=== PATIENT | male | born 1975 | race Caucasian/White ===

== ENCOUNTER 2021-12-09 12:56 | Emergency (ER) | payer OTHER, SELFPAY ==
--- NOTE | 2021-12-09 13:00 | ED.URI ---
HPI - URI/Sore Throat General Chief Complaint: Upper Respiratory Infection Stated Complaint: cough tight chest Time Seen by Provider: 12/09/21 13:00 Source: patient and RN notes reviewed History of Present Illness HPI Narrative: Patient is a 46-year-old male who presents the urgent care with complaints of cough, intermittent shortness of breath and chest tightness. Patient states is been occurring for approximately 1 week and he has been using Mucinex and DayQuil. Denies of any fevers, nausea, vomiting or chest pain. Patient states he does have a history of bronchitis. Denies any wheezing. No other acute complaints. No acute distress noted. Patient aware of the plan of care. Some parts of this dictation were generated by voice recognition software and may contain typographical and/or grammatical inaccuracies. Related Data Home Medications Medication Instructions Recorded Confirmed gjwjydkytb-drpmsunsegclg-twxt 50 tablet PO Q4-6H PRN 12/09/21 12/09/21 trazodone 50 mg PO HS 12/09/21 12/09/21 Allergies Allergy/AdvReac Type Severity Reaction Status Date / Time No Known Allergies Allergy Verified 12/09/21 13:06 Review of Systems Review of Systems: CONSTITUTIONAL: Denies fever, chills, or sweats. EYES: Denies visual changes, redness, or discharge. ENT: Denies rhinorrhea, congestion, sore throat, or otalgia. CARDIOVASCULAR: Denies chest pain, palpitations, or edema. RESPIRATORY: Reports of cough, chest congestion and intermittent dyspnea GASTROINTESTINAL: Denies abdominal pain, nausea, vomiting, or diarrhea. GENITOURINARY: Denies dysuria or hematuria. SKIN: Denies rash or itching. MUSCULOSKELETAL: Denies back pain, joint pain, or myalgia. NEUROLOGIC: Denies headache, numbness, or weakness. All other systems reviewed are negative, except as documented in HPI. PMFSH Comments At the time of my signature, I reviewed and agree with the nursing past medical, surgical, social, and family history. There is no relevant family history pertinent to the patient complaint. Exam Narrative: GENERAL: This is a well-nourished, well-developed patient, in no apparent distress. HEAD: normocephalic, atraumatic. EYES: PERRL. Sclera clear/white. Vision is grossly intact. EARS: External ears normal, auditory canals clear and without drainage, TMs normal without perforation. Hearing grossly intact. NOSE: External nose normal with no obvious nasal discharge, nares without redness, no rhinorrhea. THROAT: Mucous membranes moist, posterior pharynx clear. Mild postnasal drainage NECK: Neck supple CARDIOVASCULAR: Regular rate and rhythm without murmurs, gallops, or rubs. RESPIRATORY: Dry cough noted on exam. Clear to auscultation. Breath sounds equal bilaterally. No wheezes, rales, or rhonchi. SKIN: warm, intact with no suspicious lesions or rash, good texture and turgor. NEURO: awake, alert, and oriented to person, place and time. There were no obvious focal neurologic abnormalities. EXTREMITIES: No clubbing, cyanosis, or edema. Course Course Level of Care: Express Care Visit Vital Signs Vital signs: Vital Signs Temperature 98.0 F 12/09/21 13:03 Pulse Rate 98 12/09/21 13:03 Respiratory Rate 20 12/09/21 13:03 Blood Pressure 114/79 12/09/21 13:03 Pulse Oximetry 98 12/09/21 13:03 Temperature 98.0 F 12/09/21 13:03 Pulse Rate 98 12/09/21 13:03 Respiratory Rate 20 12/09/21 13:03 Blood Pressure 114/79 12/09/21 13:03 Pulse Oximetry 98 12/09/21 13:03 Reviewed MDM - URI/Sore Throat MDM Narrative Medical decision making narrative: Advised the patient continue Mucinex and take a daily antihistamine such as Zyrtec or Claritin. Use a humidifier at night and do not sleep with the windows open or a fan on. Complete the steroid regimen as prescribed and use the inhaler as directed for wheezing or difficulty breathing. If you develop any increase in symptoms associated with high fevers or chest pain?go to the emergenc
[2021-12-09 13:03] VITALS: BP 114/79; PULSE 98; RESP 20; TEMP 36.7; O2SAT 98
[2021-12-09 13:14] VITALS: BP 114/79; PULSE 98; RESP 20; TEMP 36.7; O2SAT 98
== END 2021-12-09 13:21 | disposition home or self-care (01) ==
PROVIDERS: Emergency Provider Nurse Practitioner Family
DX: J98.01 Acute bronchospasm (principal)
CPT/HCPCS: 99213; G0463

== ENCOUNTER 2022-07-03 08:31 | Emergency (ER) | payer OTHER, SELFPAY ==
--- NOTE | ~2022-07-03 | XR_ITS ---
EXAMINATION: XR shoulder RT min 2V DATE: 07/03/2022 08:57 INDICATION: Lateral right shoulder pain and weakness after moving a dresser. TECHNIQUE: AP internally and externally rotated, AP oblique externally rotated and axillary views of the right shoulder were obtained. COMPARISON: None FINDINGS: Normal alignment. No fracture. Glenohumeral joint is normal. Acromioclavicular joint is normal. Soft tissues are unremarkable. Right lung is clear. No pleural effusion or pneumothorax. IMPRESSION: Negative right shoulder radiographs. Reviewed, dictated and finalized at location B.
[2022-07-03 08:38] VITALS: BP 121/77; PULSE 72; RESP 16; TEMP 36.6; O2SAT 99
--- NOTE | 2022-07-03 08:44 | ED.UPPEXIN ---
HPI - Extremity Injury (Upper) General Chief Complaint: Extremity Injury, Upper Stated Complaint: right shoulder injury Time Seen by Provider: 07/03/22 08:45 Source: patient and RN notes reviewed Mode of arrival: ambulatory Limitations: no limitations History of Present Illness HPI narrative: 47-year-old male presents to the [facility] with right lateral shoulder pain. States on May 27, 5 weeks ago Him and his son were moving a dresser when he felt a pop in the right shoulder. No bruising or swelling noted. Has decreased range of motion. Full range of motion of the elbow, wrists, strong vegetable grower, positive radial pulse. Sensation intact in all 5 fingers capillary refill under 2 seconds complaint: injury to: right and shoulder Related Data Home Medications Medication Instructions Recorded Confirmed trazodone 50 mg tablet 100 mg PO HS 12/09/21 07/03/22 Allergies Allergy/AdvReac Type Severity Reaction Status Date / Time No Known Allergies Allergy Verified 07/03/22 08:52 Review of Systems Review of Systems: All systems reviewed & are unremarkable except as noted in HPI and below Constitutional: Constitutional: Reports no additional constitutional complaints, Denies chills and Denies fever(s) Eyes: Eyes: Reports no additional eye complaints ENT: Reports system reviewed and no additional complaints, except as documented Cardiovascular: Cardiovascular: Reports no additional cardiovascular complaints Respiratory: Respiratory: Reports no additional respiratory complaints Gastrointestinal: Gastrointestinal: Reports no additional gastrointestinal complaints Musculoskeletal: Musculoskeletal: Reports as per HPI, Reports arthralgias ( right shoulder) and Denies joint swelling Integumentary/Breasts: Skin/Breast: Reports system reviewed and no additional complaints, except as docu Neurologic: Reports system reviewed and no additional complaints, except as documented Psychiatric: Psychiatric: Reports no additional psychiatric complaints Allergic/Immunologic: Allergic/Immunologic: Reports no additional allergic/immunologic complaints [facility] Past Medical History Medical History (Updated 07/03/22 @ 11:40 by Reyna Waller APRN) Patient denies medical problems Surgical History Surgical History (Updated 07/03/22 @ 11:40 by Reyna Waller APRN) No pertinent past surgical history Social History Social History (Updated 07/03/22 @ 11:40 by Reyna Waller APRN) Gender identity (if verbalized by the patient): Male Comments At the time of my signature, I reviewed and agree with the nursing past medical, surgical, social, and family history. There is no relevant family history pertinent to the patient complaint. Exam Const: General: healthy appearing, no acute distress, alert and well nourished Nutritional Appearance: well nourished Orientation/consciousness: patient oriented x3 Limitations: no limitations HENMT: Head: normal to inspection Ears: external ears normal Face and sinus: normal facial exam Eyes: General: appearance normal, both eyes and all related structures Pupils: Equal, round and reactive pupils present Neck: Neck: normal visual inspection, no lymphadenopathy and no meningeal signs Chest: Chest palpation & inspection: normal inspection of the chest Resp: Effort & Inspection: normal respiratory effort and no use of accessory muscles Auscultation: clear to auscultation bilaterally, no crackles, no rales, no rhonchi and no wheezes Cardio: Rate: regular rate Rhythm: regular rhythm Back/Spine/Pelvis: Cervical Spine: normal cervical lordosis Thoracic/Lumbar Spine: thoracic and lumbar spine normal to inspection Skin: General skin exam: normal color Rashes: no rashes Wounds: no wounds Neuro: General: patient oriented x3, moves all extremities, no meningeal signs and no focal motor deficits Cranial nerves: Yes Equal, round and reactive pupils present Speech: normal speech Gai
--- NOTE | 2022-07-03 08:58 | PC.NURSE ---
PT DECLINED ICE FOR COMFORT
== END 2022-07-03 09:11 | disposition home or self-care (01) ==
PROVIDERS: Emergency Provider Nurse Practitioner; PCP Internal Medicine
DX: S46.911A Strain of unspecified muscle, fascia and tendon at shoulder and upper arm level, right arm, initial encounter (principal); X50.0XXA Overexertion from strenuous movement or load, initial encounter
CPT/HCPCS: 73030; 99213; G0463

== ENCOUNTER 2022-08-14 15:29 | Emergency (ER) | payer OTHER, SELFPAY ==
[2022-08-14 15:33] VITALS: BP 107/78; PULSE 89; RESP 16; TEMP 36.2; O2SAT 100
--- NOTE | 2022-08-14 15:35 | ED.UPPEXIN ---
HPI - Extremity Injury (Upper) General Chief Complaint: Extremity Injury, Upper Stated Complaint: Right hand finger Time Seen by Provider: 08/14/22 15:35 Source: patient and RN notes reviewed History of Present Illness HPI narrative: patient is a 47-year-old male who presents to urgent care with complaints of swelling, pain to the right middle digit. Patient states that he bites his cuticles. Patient states this is day 4. No other acute complaints. No acute distress noted. Patient aware of the plan of care. Some parts of this dictation were generated by voice recognition software and may contain typographical and/or grammatical inaccuracies. Related Data Home Medications Medication Instructions Recorded Confirmed trazodone 50 mg tablet 100 mg PO HS 12/09/21 08/14/22 methocarbamol 750 mg tablet 750 mg PO TID PRN Muscle Spasm 08/14/22 08/14/22 Allergies Allergy/AdvReac Type Severity Reaction Status Date / Time No Known Allergies Allergy Verified 08/14/22 15:42 Review of Systems Review of Systems: CONSTITUTIONAL: Denies fever, chills, or sweats. EYES: Denies visual changes, redness, or discharge. ENT: Denies rhinorrhea, congestion, sore throat, or otalgia. CARDIOVASCULAR: Denies chest pain, palpitations, or edema. RESPIRATORY: Denies cough or dyspnea. GASTROINTESTINAL: Denies abdominal pain, nausea, vomiting, or diarrhea. GENITOURINARY: Denies dysuria or hematuria. SKIN: Represents redness, swelling, pain to the cuticle of the right middle digit MUSCULOSKELETAL: Denies back pain, joint pain, or myalgia. NEUROLOGIC: Denies headache, numbness, or weakness. All other systems reviewed are negative, except as documented in HPI. [facility] Past Medical History Medical History (Updated 08/14/22 @ 15:49 by NAVEED Butler) Patient denies medical problems Surgical History Surgical History (Updated 07/03/22 @ 11:40 by Reyna Waller APRN) No pertinent past surgical history Social History Social History (Updated 07/03/22 @ 11:40 by Reyna Waller APRN) Gender identity (if verbalized by the patient): Male Comments At the time of my signature, I reviewed and agree with the nursing past medical, surgical, social, and family history. There is no relevant family history pertinent to the patient complaint. Exam Narrative: GENERAL: This is a well-nourished, well-developed patient, in no apparent distress. HEAD: normocephalic, atraumatic. EYES: PERRL. Sclera clear/white. Vision is grossly intact. EARS: External ears normal NOSE: External nose normal with no obvious nasal discharge, nares without redness, no rhinorrhea. THROAT: Mucous membranes moist NECK: Neck supple SKIN: Moderate erythema and edema surrounding the cuticle, mostly to the radial aspect of the right middle finger.warm, intact with no suspicious lesions or rash, good texture and turgor. NEURO: awake, alert, and oriented to person, place and time. There were no obvious focal neurologic abnormalities. EXTREMITIES: range of motion right upper extremity within normal limits. Positive strong right radial pulse with capillary refill less than 2 seconds. Course Course Level of Care: Express Care Visit Vital Signs Vital signs: Vital Signs Temperature 97.2 F L 08/14/22 15:33 Pulse Rate 89 08/14/22 15:33 Respiratory Rate 16 08/14/22 15:33 Blood Pressure 107/78 08/14/22 15:33 Pulse Oximetry 100 08/14/22 15:33 Oxygen Delivery Room Air 08/14/22 15:33 Temperature 97.2 F L 08/14/22 15:33 Pulse Rate 89 08/14/22 15:33 Respiratory Rate 16 08/14/22 15:33 Blood Pressure 107/78 08/14/22 15:33 Pulse Oximetry 100 08/14/22 15:33 Oxygen Delivery Room Air 08/14/22 15:33 reviewed Procedures Other Procedure Procedure 1: Other Procedure: paronychia noted to the cuticle aspect of the right middle digit, more so on the radial aspect. Cleansed with Betadine. Incised with 18 gauge needle. Thick y
== END 2022-08-14 15:50 | disposition home or self-care (01) ==
PROVIDERS: Emergency Provider Nurse Practitioner Family; PCP Internal Medicine
DX: L03.011 Cellulitis of right finger (principal)
CPT/HCPCS: 10060; 99213; G0463

== ENCOUNTER 2024-10-14 15:24 | Emergency (ER) | payer BC, SELFPAY ==
--- OUTSIDE RECORDS SUMMARY | 2024-10-14 15:25 | XMS_ITS | Encounter Summary ---
Author Organization [facility] Address [address] [place] [address] Phone Care Team Providers Care Appointment Scheduler Name Role Phone Rich Villatoro MD Primary Care Provider [phone] Reason for Visit * Reason Comments Medication Refill Encounter Details Date Type Department Care Team (Late st Contact Info) Description 09/17/2021 Refill [facility] - Family Medicine [facility] [address] [place] [id number] Rich Villatoro MD [address] [address] Medication Refill Social History Tobacco Use Types Packs/Day Years Used Date Smoking Tobacco: Never Smokeless Tobacco: Current Alcohol Use Standard Drinks/Week Comments No 0 (1 standard drink = 0.6 oz pur e alcohol) PHQ-2 Answer Date Recorded Total Score - Questions 1-9 0 12/29 Education Answer Date Recorded What is the highest level of school you have completed or the highest degree you have received? GED or equivalent Sex and Gender Information Value Date Recorded Sex Assigned at Not on file Legal Sex Male 12:40 AM CDT Gender Identity Not on file Sexual Orientation Not on file documented as of this encounter Miscellaneous Notes * Telephone Encounter - Cass Andrade RMA - 09/18/2021 9:58 AM PRODUCTION GEAR CUTTER Left voicemail UCTION GEAR CUTTER * Telephone Encounter - Karli Cedillo RN - 09/17/2021 1:50 PM CST Patient needs an appointment with PCP UCTION GEAR CUTTER * Telephone Encounter - Karli Cedillo RN - 09/17/2021 1:50 PM CST Medication failed the protocol, provider to review and approve the medication order if appropriate. Requested Prescriptions Pending Prescriptions Disp Refills venlafaxine (EFFEXOR-XR) 75 MG CAPSULE SR 24 HR [Pharmacy Med Name: Venlafaxine HCl ER 75 MG Oral Capsule Extended Release 24 Hour] 30 Capsule 0 Sig: Take 1 capsule by mouth once daily SNRI (6 Month Refill Only) Protocol Failed - 09/17/2021 9:21 AM Failed - Visit with relevant provider in past 6 months or upcoming 90 days Recent Visits No visits were found meeting these conditions. Showing recent visits within past 182 days and meeting all other requirements Future Appointments No visits were found meeting these conditions. Showing future appointments within next 90 days and meeting all other requirements Failed - Has an encounter in the past 6 months with a depression or anxiety visit diagnosis Passed - Patient has established therapy with Serotonin-Norepinephrine Reuptake Inhibitors for at least 6 months UCTION GEAR CUTTER documented in this encounter Plan of Treatment Not on file documented as of this encounter Visit Diagnoses Diagnosis Grief reaction Adjustment disorder with depressed mood documented in this encounter Additional Health Concerns Infection Onset Date Last Indicated Resolved Time COVID - 19 12/11/2021 12/11/2021 12/31/2021 12:1 6 AM CDT COVID - 08/05/2022 08/05/2022 08/15/2022 12:1 6 AM PRODUCTION GEAR CUTTER Assessment Noted Time PHQ-9 Depression Total Score: 0 01/25/20 8:00 AM CDT documented as of this encounter Care Teams Appointment Scheduler Relationship Specialty Start Date End Date Rich Villatoro MD [id number] [address] PCP - General Family Medicine 07/30/15 documented as of this encounter
--- OUTSIDE RECORDS SUMMARY | 2024-10-14 15:25 | XMS_ITS | Encounter Summary ---
Author Organization [facility] Address [address] [place] [address] Phone Care Team Providers Care Occupational Therapy Supervisor Name Role Phone Rich Villatoro MD Primary Care Provider [phone] Reason for Visit * Reason Comments Medication Refill Encounter Details Date Type Department Care Team (Late st Contact Info) Description 01/14/2021 Refill [facility] - [facility] Medicine [facility] [address] [place] [id number] Rich Villatoro MD [address] [address] Medication Refill Social History Tobacco Use Types [...] encounter Miscellaneous Notes * Telephone Encounter - Rich Villatoro MD - 01/15/2021 9:24 AM CDT Prescription pending signature * Telephone Encounter - Karli Cedillo RN - 01/15/2021 9:01 AM CDT Medication failed the protocol, provider to review and approve the medication order if appropriate. Requested Prescriptions Pending Prescriptions Disp Refills busPIRone (BUSPAR) 15 MG Tablet [Pharmacy Med Name: busPIRone HCl 15 MG Oral Tablet] 90 Tablet 1 Sig: TAKE 1 TABLET BY MOUTH THREE TIMES DAILY [facility] Not Delegated - Psychiatry: Anxiolytics/Hypnotics Failed - 01/14/2021 10:44 AM Failed - This refill cannot be delegated Passed - Valid encounter within last 6 months Past Office Visits Recent Outpatient Visits 4 months ago Anxiety and depression [facility] - Rich Reyes MD 11 months ago Tenosynovitis [facility] - [facility]Isa Turk APN, ADAPTED PHYSICAL EDUCATION TEACHER 1 year ago [facility], ADAPTED PHYSICAL EDUCATION TEACHER 2 years ago Upper respiratory tract infection, unspecified type [facility] 2 years ago Acute non-recurrent sinusitis, unspecified [facility] Upcoming Appointments DISTRIBUTOR SALES CONSULTANT - Recent and Past Visits Recent Visits Date Type Provider Dept 09/12/20 Telemedicine Rich Villatoro MD [facility] 01/25/20 Office Visit Isa Anderson APN, ADAPTED PHYSICAL EDUCATION TEACHER [facility] Showing recent visits within past 460 days with a meds authorizing provider and meeting all other requirements Future Appointments No visits were found meeting these conditions. Showing future appointments within next 90 days with a meds authorizing provider and meeting all other requirements Buspirone (6 Month Refill Only) Protocol Passed - 01/14/2021 10:44 AM Passed - Visit with relevant provider in past 6 months or upcoming 90 days Recent Visits Date Type Provider Dept 09/12/20 Telemedicine Rich Villatoro MD [facility] Showing recent visits within past 182 days and meeting all other requirements Future Appointments No visits were found meeting these conditions. Showing future appointments within next 90 days and meeting all other requirements Passed - Has an encounter in the past 6 months with a depression or anxiety visit diagnosis Passed - Patient has established therapy with Buspirone for at least 6 months adfqkuoerm-szzlmjremqfwt-ohhwhmrt (FIORICET, ESGIC) 50-325-40 MG Tablet [Pharmacy Med Name: Neyxndadrh-YTLH-Vzmyeofv 50-325-40 MG Oral Tablet] 30 Tablet 0 Sig: TAKE 1 TABLET BY MOUTH EVERY 4 TO 6 HOURS NEEDED FOR HEADACHE [facility] Off-Protocol Failed - 01/14/2021 10:44 AM Failed - Medication not assigned to a protocol, review manually. Passed - Valid encounter within last 12 months Past Office Visits Recent Outpatient Visits 4 months ago Anxiety and depression [facility] Rich Reyes MD 11 months [facility] 2 years ago Upper respiratory tract infection, unspecified type [facility] 2 years ago Acute non-recurrent sinusitis, unspecified [facility] Upcoming Appointments DISTRIBUTOR SALES CONSULTANT - Recent and Past Visits Recent Visits Date Type Provider Dept 09/12/20 Telemedicine Rich Villatoro MD [facility] 01/25/20 Office Visit Isa Anderson APN, CNP [facility] Showing recent visits within past 460 days with a meds authorizing provider and meeting all other requirements Future Appointments No visits were found meeting these conditions. Showing future appointments within next 90 days with a meds authorizing provider and meeting all other requirements documented in this encounter Plan of Treatment Not on file documented as of this encounter Visit Diagnoses Diagnosis Anxiety and depression Dysthymic disorder Chronic tension-type headache, not intractable Chronic tension type headache documented in this encounter Additional Health Concerns Infection Onset Date Last Indicated Resolved Time COVID - 19 12/11/2021 12/11/2021 12/31/2021 12:1 6 AM CDT COVID - 19 08/05/2022 08/05/2022 08/15/2022 12:1 6 AM TAXATION INSPECTOR Assessment Noted Time PHQ-9 Depression Total Score: 0 01/25/20 8:00 AM CDT documented as of this encounter Care Teams Occupational Therapy Supervisor Relationship Specialty Start Date End Date Rich Villatoro MD [address] [address] PCP - General Family Medicine 07/30/15 documented as of this encounter
--- OUTSIDE RECORDS SUMMARY | 2024-10-14 15:25 | XMS_ITS | Encounter Summary ---
Author Organization [facility] Address [address] [place] [address] Phone Care Team Providers Care Solution Designer Name Role Phone Rihc Villatoro MD Primary Care Provider [phone] Reason for Visit * Reason Comments Medication Refill Encounter Details Date Type Department Care Team (Late st Contact Info) Description 12/06/2020 Refill [facility] #2 [place] [id number] Rich Villatoro MD [address] [address] Medication Refill Social History Tobacco Use Types [...] Telephone Encounter - Rich Villatoro MD - 12/06/2020 5:36 PM CDT Prescription approved. Please call in * Telephone Encounter - Karli Cedillo RN - 12/06/2020 1:52 PM CDT Medication failed the protocol, provider to review and approve the medication order if appropriate. Requested Prescriptions Pending Prescriptions Disp Refills traZODone (DESYREL) 50 MG Tablet [Pharmacy Med Name: traZODone HCl 50 MG Oral Tablet] 90 Tablet Sig: Take 1 tablet by mouth nightly Not Delegated - Psychiatry: Antidepressants - Serotonin Reuptake Inhibitor/Antagonist Failed - 12/06/2020 7:33 AM Failed - This refill cannot be delegated Passed - Valid encounter within last 12 months Past Office Visits Recent Outpatient Visits 2 months ago [facility] 10 months [facility] APN, PROTEIN SCIENTIST 1 year ago Kidney stone [facility] AP[facility], PROTEIN SCIENTIST 2 years ago Upper respiratory tract infection, unspecified type [facility] PAC 2 years ago Acute non-recurrent sinusitis, unspecified location [facility] Kim MD Upcoming Appointments [employer] - Recent and Past Visits Recent Visits Date Type Provider Dept 09/12/20 Telemedicine Rich Villatoro MD [facility] [place] 01/25/20 Office Visit Isa Anderson APN, SRINIVASAN [facility] [place] 09/04/19 Office Visit Isa Anderson APN, SRINIVASAN [facility] [place] Showing recent visits within past 460 days with a meds authorizing provider and meeting all other requirements Future Appointments No visits were found meeting these conditions. Showing future appointments within next 90 days with a meds authorizing provider and meeting all other requirements documented in this encounter Plan of Treatment Not on file documented as of this encounter Visit Diagnoses Not on filedocumented in this encounter Additional Health Concerns Infection Onset Date Last Indicated Resolved Time COVID - 19 12/11/2021 12/11/2021 12/31/2021 12:1 6 AM CDT COVID - 19 08/05/2022 08/05/2022 08/15/2022 12:1 6 AM MEDICAL CLERK Assessment Noted Time PHQ-9 Depression Total Score: 0 01/25/20 20 8:00 AM CDT documented as of this encounter Care Teams Solution Designer Relationship Specialty Start Date End Date Rich Villatoro MD #[address] [place] [id number] PCP - General Family Medicine 07/30/15 documented as of this encounter
--- OUTSIDE RECORDS SUMMARY | 2024-10-14 15:26 | XMS_ITS | Encounter Summary ---
Author Organization [facility] Address [address] [place] [address] Phone Care Team Providers Care Mathematics Teacher Name Role Phone Rich Villatoro MD Primary Care Provider [phone] Reason for Visit * Reason Comments Medication Refill Encounter Details Date Type Department Care Team (Late st Contact Info) Description 01/16/2020 Refill [facility] #2 [place] [address] Rich Villatoro MD [address] [address] Medication Refill Social History Tobacco Use Types Packs/Day Years Used Date Smoking Tobacco: Never Smokeless Tobacco: Never Alcohol Use Standard Drinks/Week Comments No 0 (1 standard drink = 0.6 oz pur e alcohol) PHQ-2 Answer Date Recorded PHQ-2 Score 0 2019 Sex and Gender Information Value Date Recorded Sex Assigned at Not on file Legal Sex Male 12:40 AM CDT Gender Identity Not on file Sexual Orientation Not on file documented as of this encounter Miscellaneous Notes * Telephone Encounter - Rich Villatoro MD - 01/17/2020 8:12 AM CDT Prescription pending signature * Telephone Encounter - Mahogany Bond RN - 01/17/2020 8:10 AM CDT Requested Prescriptions Pending Prescriptions Disp Refills ufmxhltadn-zsohaqrmlunkj-ldnnqgkg (FIORICET, ESGIC) 50-325-40 MG Tablet [Pharmacy Med Name: Ohgcnxttad-EDAK-Oqzuzzsy 50-325-40 MG Oral Tablet] 30 Tab 0 Sig: TAKE 1 TABLET BY MOUTH EVERY 4 HOURS NEEDED FOR HEADACHE Off-Protocol Failed - 01/16/2020 11:59 PM Failed - Medication not assigned to a protocol, review manually. Passed - Valid encounter within last 12 months Past Office Visits Recent Outpatient Visits 4 months ago Kidney stone [facility] PHYSICIAN [facility] Isa Anderson APN, PARTS FINISHER 1 year ago Upper respiratory tract infection, unspecified type [facility] Sera Francis, PAC 1 year ago Acute non-recurrent sinusitis, unspecified location [facility] Lenin Sanchez MD 2 years ago Grief reaction [facility] Lizzette Luz, PAC 3 years ago Bronchitis [facility] Shelbi Lynn, YOLIS Upcoming Appointments documented in this encounter Plan of Treatment Not on file documented as of this encounter Visit Diagnoses Diagnosis Chronic tension-type headache, not intractable Chronic tension type headache documented in this encounter Additional Health Concerns Infection Onset Date Last Indicated Resolved Time COVID - 19 12/11/2021 12/11/2021 12/31/2021 12:1 6 AM CDT COVID - 19 08/05/2022 08/05/2022 08/15/2022 12:1 6 AM PERFORMANCE REPORTER Assessment Noted Time PHQ-9 Depression Total Score: 0 07/29/20 18 3:00 PM PERFORMANCE REPORTER documented as of this encounter Care Teams Mathematics Teacher Relationship Specialty Start Date End Date Rich Villatoro MD [address] [place] [address] PCP - General Family Medicine 07/30/15 documented as of this encounter
--- OUTSIDE RECORDS SUMMARY | 2024-10-14 15:26 | XMS_ITS | Encounter Summary ---
Author Organization [facility] Address [address] [place] [address] Phone Care Team Providers Care Legislative Assistant Name Role Phone Rich Villatoro MD Primary Care Provider [phone] Reason for Visit * Reason Comments Medication Refill Encounter Details Date Type Department Care Team (Late st Contact Info) Description 11/26/2019 Refill [facility] #2 [place] [address] Rich Villatoro MD #[address] [address] Medication Refill Social History Tobacco Use Types [...] Telephone Encounter - Rich Villatoro MD - 11/27/2019 12:03 PM CDT Prescription pending signature * Telephone Encounter - Mahogany Bond, RN - 11/27/2019 9:56 AM CDT Requested Prescriptions Pending Prescriptions Disp Refills gldzstqlhq-rchwyhaebhdio-btojmgel (FIORICET, ESGIC) 50-325-40 MG Tablet [Pharmacy Med Name: Zgnnayvvkg-VJKZ-Ovelqras 50-325-40 MG Oral Tablet] 30 Tab 0 Sig: TAKE 1 TABLET BY MOUTH EVERY 4 HOURS NEEDED FOR HEADACHE Off-Protocol Failed - 11/26/2019 1:45 PM Failed - Medication not assigned to a protocol, review manually. Passed - Valid encounter within last 12 months Past Office Visits Recent Outpatient Visits 2 months ago Kidney stone [facility] PHYSICIAN [facility] Isa Anderson APN, APPAREL FASHION DESIGNER 12 months ago Upper respiratory tract infection, unspecified type [facility] Sera Francis PAC 1 year ago Acute non-recurrent sinusitis, unspecified location [facility] Lenin Sanchez MD 2 years ago Grief reaction [facility] Lizzette Luz PAC 2 years ago Bronchitis [facility] Shelbi Lynn, PAC Upcoming Appointments documented in this encounter Plan of Treatment Not on file documented as of this encounter Visit Diagnoses Diagnosis Chronic tension-type headache, not intractable Chronic tension type headache documented in this encounter Additional Health Concerns Infection Onset Date Last Indicated Resolved Time COVID - 19 12/11/2021 12/11/2021 12/31/2021 12:1 6 AM CDT COVID - 19 08/05/2022 08/05/2022 08/15/2022 12:1 6 AM PRINTING SALES REPRESENTATIVE Assessment Noted Time PHQ-9 Depression Total Score: 0 07/29/20 18 3:00 PM PRINTING SALES REPRESENTATIVE documented as of this encounter Care Teams Legislative Assistant Relationship Specialty Start Date End Date Rich Villatoro MD [address] [place] [address] PCP - General Family Medicine 07/30/15 documented as of this encounter
--- OUTSIDE RECORDS SUMMARY | 2024-10-14 15:26 | XMS_ITS | Encounter Summary ---
Author Organization [facility] Address [address] [place] [address] Phone Care Team Providers Care Alternative Education Teacher Name Role Phone Rich Villatoro MD Primary Care Provider [phone] Reason for Visit * Reason Comments Medication Refill Encounter Details Date Type Department Care Team (Late st Contact Info) Description 03/29/2023 Refill [facility] - Family Medicine [facility] #2 [place] [phone] Rich Villatoro MD [address] [address] Medication Refill Social History Tobacco Use Types Packs/Day Years Used Date Smoking Tobacco: Never Smokeless Tobacco: Current Alcohol Use Standard Drinks/Week Comments No 0 (1 standard drink = 0.6 oz pur e alcohol) PHQ-2 Answer Date Recorded Total Score - Questions 1-9 0 11/29 Education Answer Date Recorded What is the [...] encounter Miscellaneous Notes * Telephone Encounter - Karli Cedillo RN - 03/29/2023 2:37 PM CDT Medication warning Per nursing clinical judgement, provider to review and approve the medication(s) order(s) if appropriate. Requested Prescriptions Pending Prescriptions Disp Refills traZODone (DESYREL) 50 MG Tablet [Pharmacy Med Name: traZODone HCl 50 MG Oral Tablet] 180 Tablet 1 Sig: TAKE 2 TABLETS BY MOUTH NIGHTLY Serotonin Modulators (6 Month Refill Only) Protocol Passed - 03/29/2023 9:18 AM Passed - Visit with relevant provider in past 6 months or upcoming 90 days Recent Visits Date Type Provider Dept 10/08/22 Office Visit Rich Villatoro MD [facility] Showing recent visits within past 182 days and meeting all other requirements Future Appointments No visits were found meeting these conditions. Showing future appointments within next 90 days and meeting all other requirements Passed - Has an encounter in the past 6 months with a depression or anxiety visit diagnosis Passed - No PRN Use for Trazodone Passed - Patient has established therapy with Serotonin Modulators for at least 6 months documented in this encounter Plan of Treatment Not on file documented as of this encounter Visit Diagnoses Diagnosis Anxiety and depression Dysthymic disorder documented in this encounter Additional Health Concerns Assessment Noted Time PHQ-9 Depression Total Score: 0 01/25/20 20 8:00 AM CDT documented as of this encounter Care Teams Alternative Education Teacher Relationship Specialty Start Date End Date Rich Villatoro MD [address] [place] [id number] PCP - General Family Medicine 07/30/15 documented as of this encounter
--- OUTSIDE RECORDS SUMMARY | 2024-10-14 15:26 | XMS_ITS | Clinical Summary ---
Author Organization [facility] Address [address] [place] [address] Phone Care Team Providers Care Sheet Metal Layout Mechanic Name Role Phone Rich Villatoro MD Primary Care Provider [phone] Allergies No known active allergies Medications methocarbamol (ROBAXIN) 750 MG TabletIndicatio ns:Acute pain of right shoulder Take 1 Tablet by mouth 3 times daily as needed (muscle spasms). 90 Tablet 3 10/08/2022 Active traZODone (DESYREL) 50 MG TabletIndicatio ns:Anxiety and depression Take 2 Tablets by mouth nightly. 180 Tablet 3 11/23/2023 Active venlafaxine (EFFEXOR-XR) 75 MG CAPSULE SR 24 HRIndications:A nxiety and depression Take 1 Capsule by mouth daily. 90 Capsule 3 11/23/2023 Active busPIRone (BUSPAR) 5 MG TabletIndicatio ns:Anxiety and depression Take 1 Tablet by mouth 3 times daily. 270 Tablet 3 11/23/2023 Active Active Problems Problem Noted Date Diagnosed Date Herpes genitalis in men 09/04/2019 Anxiety and depression 08/19/2019 Restless leg syndrome 12/04/2016 Hyperlipidemia 10/29/2016 Depression 04/03/2016 Resolved Problems Problem Noted Date Diagnosed Date Resolved Date Sepsis, unspecified organism 08/23/2019 11/05/2021 Pyelonephritis of left kidney 08/22/2019 11/05/2021 Hypomagnesemia 08/22/2019 11/05/2021 Hydronephrosis of left kidney 08/19/2019 11/05/2021 Left nephrolithiasis 08/19/2019 022 Acute kidney injury 08/19/2019 11/06/19 22 Immunizations Immunization Administration Dates Next Due Covid-19, Mrna, Lnp-s, Pf, 30 Mcg/0.3 Ml Dose (Emily duron) 08/13/2021 Hepatitis A Vaccine 04/18/2012,10/02/2008 Influenza Vaccine greater than 3 yrs 04/30/2012 Influenza, Seasonal, Injectable, Undefined 04/30 Tetanus Toxoid, Unspecified Formulation 04/30/20 12 Family History Medical History Relation Name Comments No Known Problems Brother Hypertension Father Heart Attack Maternal Grandfather Migraines Mother Kerline Hypertension Paternal Grandmother Relation Name Status Comments Brother Alive Father Alive Maternal Grandfather Maternal Grandmother Alive Mother Kerline Alive Paternal Grandfather Paternal Grandmother Alive Social History Tobacco Use Types Packs/Day Years Used Date Smoking Tobacco: Never Smokeless Tobacco: Former Quit: 09/03/2021 Tobacco Cessation:Counseling Given: No Comments:Stopped chewing tobacco almost 3 years ago, i use nicotine pouches as replacement Alcohol Use Standard Drinks/Week Comments No 0 (1 standard drink = 0.6 oz pur e alcohol) [facility] [employer] Answer Date Recorded In the past 12 months has e electric, gas, oil, or water Preventice threatened to shut off services in your home? No 11/17/2023 Social Connection and Isolat ion Panel [NHANES] Answer Date Recorded In a typical week, how many times do you talk on the phone with family, friends, or neighbors? Once a week 11/17/2023 How often do you get togethe r with friends or relatives? More than three times a week 11/17/2023 How often do you attend chur ch or restorationist services? Patient declined 11/17/2023 Do you belong to any clubs o r organizations such as mormonism groups, unions, fraternal or athletic groups, or school groups? No 11/17/2023 How often do you attend meet ings of the clubs or organizations you belong to? Patient declined 11/17/2023 Are you , , di vorced, , never , or living with a partner? Living with partner 11/17/2023 AUDIT-C Answer Date Recorded Q1: How often do you have a drink containing alcohol? Never 11/17/2023 Q2: How many drinks containi ng alcohol do you have on a typical day when you are drinking? Patient does not drink Q3: How often do you have si x or more drinks on one occasion? Never 11/17/2023 Overall Financial Resource Strain (CARDIA) Answe r Date Recorded How hard is it for you to pa y for the very basics like food, housing, medical care, and heating? Somewhat hard 11/17/2023 PHQ-2 Answer Date Recorded Total Score - Questions 1-9 0 11/29 [facility] - Occupational Stress Questionnaire Answer Date Recorded Do you feel stress - tense, restless, nervous, or anxious, or unable to sleep at night because your mind is troubled all the time - these days? To some extent 11/17/2023 Exercise Vital Sign Answer Date Recorde d On average, how many days pe r week do you engage in moderate to strenuous exercise (like a brisk walk)? 3 days 11/17/2023 On average, how many minutes do you engage in exercise at this level? 60 min 11/17/2023 Hunger Vital Sign Answer Date Recorded Within the past 12 months, y ou worried that your food would run out before you got the money to buy more. Never true 11/17/19 24 Within the past 12 months, t he food you bought just didn't last and you didn't have money to get more. Never true 11/17/2023 PRAPARE - Transportation Answer Date Re corded In the past 12 months, has l ack of transportation kept you from medical appointments or from getting medications? No 10/29 In the past 12 months, has l ack of transportation kept you from meetings, work, or from getting things needed for daily living? No 11/17/2023 Housing Stability Vital Sign Answer Boone e Recorded In the last 12 months, was t here a time when you were not able to pay the mortgage or rent on time? No 11/17/2023 In the last 12 months, how many places have you lived? 1 11/17/2023 In the last 12 months, was t here a time when you did not have a steady place to sleep or slept in a mcfp (including now)? No 11/17/2023 Education Answer Date Recorded What is the highest level of school you have completed or the highest degree you have received? GED or equivalent Sexually Active Control Partners Comments Yes Surgical Female Sex and Gender Information Value Date Recorded Sex Assigned at Not on file Legal Sex Male 12:40 AM CDT Gender Identity Not on file Sexual Orientation Not on file Last Filed Vital Signs Vital Sign Reading Time Taken Comments Blood Pressure 106/76 10/08/2022 10:21 AM DRYLAND FARMER Pulse 96 10/08/2022 10:43 AM DRYLAND FARMER Temperature 36.6 C (97.9 F) 10/08/2022 10:21 AM DRYLAND FARMER Respiratory Rate 16 10/08/2022 10:2 1 AM DRYLAND FARMER Oxygen Saturation 100% 10/08/2022 10: 21 AM DRYLAND FARMER Inhaled Oxygen Concentration - - Weight 69.8 kg (153 lb 14.4 oz) 023 10:21 AM DRYLAND FARMER Height 154.9 cm (5' 1 ) 10/08/2022 10:2 1 AM DRYLAND FARMER Body Mass Index 29.08 10/08/2022 10:21 AM DRYLAND FARMER Plan of Treatment Health Maintenance Due Date Last Done Comments Hepatitis C Virus (HCV) Screening 1977 TdaP Immunization 1977 Hepatitis B Immunization (1 of 3 - 19+ 3-dose series) 1996 Colonoscopy 2022 Colorectal Cancer Screening 2022 Influenza Immunization (#1) 2024 04/30/2012 SARS-COV-2 Immunization ( season) 2024 08/13/2021, 06/23/2021, 11/15/2020, Additional history exists Respiratory Syncytial Virus (RSV) Immunization (Adult) (1 - 1-dose 75+ series) 2052 Meningococcal Immunization (ACWY) Aged Out No longer eligible based on patient's age to complete this topic Pneumococcal Immunization Combined Aged Out No longer eligible based on patient's age to complete this topic Rotavirus Immunization Aged Out No lo nger eligible based on patient's age to complete this topic Medical Devices Implanted Type Area Aix System Administrator Device Identifier Shelf Expiration Date Model / Serial / Lot Stent Ureteral 6fr 2.1fr 26cm 2 Pigtail Curve 2 Durometer Taper Tip Loprfl Graduated Polaris Ultra - [id number] Implanted:Qty : 1 on 08/25/2019 by Patience Chaidez MD at [facility] IMPLANT Left: Ureter [employer] 06/12/2022 [id number] 0 / [id number] 0 / [id number] Explanted Type Area Aix System Administrator Device Identifier Shelf Expiration Date Model / Serial / Lot Stent Ureteral 6fr 2.1fr 26cm 2 Pigtail Curve 2 Durometer Taper Tip Loprfl Graduated Polaris Ultra - [id number] Implanted:Qty : 1 on 08/19/2019 by Connor Giron MD at [facility] Explanted:Qty : 1 on 08/25/2019 by Patience Chaidez MD at [facility] IMPLANT Left: Ureter [employer] 01/28/2022 [id number] 0 / [id number] 0 / [id number] Insurance [id number] [place] [address] Advance Directives * Full Code (Latest Code Status on File) Date Activated Date Inactivated Comments 08/23/2019 12:31 AM 08/27/2019 1:46 PM CPR-Full Treatment: FULL ARREST: Attempt Resuscitation/CPR wit intubation and mechanical ventilation. PRE-ARREST: Use entire range of life support measures to stabilize the patient. * Full Code Date Activated Date Inactivated Comments 08/19/2019 2:02 AM 08/20/2019 2:33 PM CPR-Full T reatment: FULL ARREST: Attempt Resuscitation/CPR wit intubation and mechanical ventilation. PRE-ARREST: Use entire range of life support measures to stabilize the patient. Care Teams Sheet Metal Layout Mechanic Relationship Specialty Start Date End Date Rich Villatoro MD #[address] [address] PCP - General Family Medicine 07/30/15
--- OUTSIDE RECORDS SUMMARY | 2024-10-14 15:26 | XMS_ITS | Encounter Summary ---
Author Organization [facility] Address [address] [place] [address] Phone Care Team Providers Care Paediatric Physiotherapist Name Role Phone Rich Villatoro MD Primary Care Provider [phone] Reason for Visit * Reason Onset Date Comments Prior Authorization 07/13/2022 URGENT! AUTH DENIED PEER TO PEER NEEDED BY 07/16/22 Encounter Details Date Type Department Care Team (Late st Contact Info) Description 07/13/2022 Telephone [facility] Outpatient [address] [place] [phone] Remi Kc, MANUFACTURING PROJECT MANAGER, FOUNDRY OPERATOR [address] [address] Prior Authorization (URGENT! AUTH DENIED PEER TO PEER NEEDED BY 07/16/22) Social History Tobacco Use Types Packs/Day Years [...] on file Sexual Orientation Not on file COVID-19 Exposure Response Date Recorded In the last 10 days, have yo u been in contact with someone who was confirmed or suspected to have Coronavirus/COVID-19? No / Unsure 07/09/2022 9:50 AM TOOL CRIB MANAGER documented as of this encounter Miscellaneous Notes * Telephone Encounter - Remi Kc APRN, CNP - 07/15/2022 12:40 PM CST Authorized, [id number] is the authorization number CRIB MANAGER * Telephone Encounter - Kelsey CordobaLukas - 07/13/2022 12:49 PM CST Images from the original note were not included. Auth Denied-P2P offered Ordering Provider: Internal Appointment Info: Clinic: [facility] Provider: SAHXIOMARA Appt Date/Time: Wednesday 10:30 AM Payor + Plan: [facility] CPT/Test: 03377 Authorization denied through: Mayi [employer] Phone number called: [phone] Reference number / employer relations representative's name and time of call: [id number] Estimated Amount [Full Charges]: 3,337.00 Reason for denial: A Uexhozebt-rh-Czryqeasi discussion is required to complete the Notification Process. The ordering physician must call and select option #3 to engage in a Bnrrqrenx-fg-Ceyftegbl discussion. Please ensure the physician has the case number provided above available when making this call. If a Fhpyavtbm-mo-Yjgczctxb discussion is not conducted within 3 business days,this notification number request will be deemed and you must reinitiate the Notification Process. Add'l Steps Taken (Pt Notified, Reached out to Provider, etc.): Peer to Peer review offered by Payer: Yes Peer to Peer review expires: 07/16/22 Case #: [id number] Phone #: [phone] OPTION 3 Physician: Remi Kc APRN, CNP Phys. Notified? Yes Notification Made to Patient: No If no, provide reason: AWAITING PEER TO PEER TO BE COMPLETE/ ADDRESSED CRIB MANAGER documented in this encounter Plan of Treatment Not on file documented as of this encounter Visit Diagnoses Not on filedocumented in this encounter Additional Health Concerns Infection Onset Date Last Indicated Resolved Time COVID - 19 08/05/2022 08/05/2022 08/15/2022 12:1 6 AM TOOL CRIB MANAGER Assessment Noted Time PHQ-9 Depression Total Score: 0 01/25/20 20 8:00 AM CDT documented as of this encounter Care Teams Paediatric Physiotherapist Relationship Specialty Start Date End Date Rich Villatoro MD [address] [place] [id number] PCP - General Family Medicine 07/30/15 documented as of this encounter
--- OUTSIDE RECORDS SUMMARY | 2024-10-14 15:26 | XMS_ITS | Encounter Summary ---
Author Organization [facility] Address [address] [place] [address] Phone Care Team Providers Care Sand Mixer Name Role Phone Rich Villatoro MD Primary Care Provider [phone] Reason for Visit * Reason Comments Medication Refill Encounter Details Date Type Department Care Team (Late st Contact Info) Description 03/05/2020 Refill [facility] [place] #2 [place] [address] Rich Villatoro MD #[address] [address] Medication Refill Social History Tobacco Use Types Packs/Day Years Used Date Smoking Tobacco: Never Smokeless Tobacco: Current Alcohol Use Standard Drinks/Week Comments No 0 (1 standard drink = 0.6 oz pur e alcohol) PHQ-2 Answer Date Recorded Total Score - Questions 1-9 0 12/29 Sex and Gender Information Value Date Recorded Sex Assigned at Not on file Legal Sex Male 12:40 AM CDT Gender Identity Not on file Sexual Orientation Not on file documented as of this encounter Miscellaneous Notes * Telephone Encounter - Rich Villatoro MD - 03/05/2020 3:19 PM CDT Prescription pending signature * Telephone Encounter - Mahogany Bond RN - 03/05/2020 2:30 PM CDT Requested Prescriptions Pending Prescriptions Disp Refills zypshghcnh-ykhvwyfowvevv-kauitpnv (FIORICET, ESGIC) 50-325-40 MG Tablet [Pharmacy Med Name: Crixujxxtn-QXXZ-Epckbxwh 50-325-40 MG Oral Tablet] 30 Tab 0 Sig: TAKE 1 TABLET BY MOUTH EVERY 4 HOURS NEEDED FOR HEADACHE Off-Protocol Failed - 03/05/2020 11:19 AM Failed - Medication not assigned to a protocol, review manually. Passed - Valid encounter within last 12 months Past Office Visits Recent Outpatient Visits 1 month ago Tenosynovitis [facility] Isa Anderson APN, CNP 6 months ago Kidney stone [facility] Isa Anderson APN, CNP 1 year ago Upper respiratory tract infection, unspecified type [facility] Sera Francis PAC 1 year ago Acute non-recurrent sinusitis, unspecified location [facility] Lenin Sanchez MD 2 years ago Grief reaction [facility] Lizzette Luz January, PAC Upcoming Appointments Future Appointments In 3 days Isa Anderson APN, CNP [facility] busPIRone (BUSPAR) 15 MG Tablet [Pharmacy Med Name: busPIRone HCl 15 MG Oral Tablet] 90 Tab 4 Sig: TAKE 1 TABLET BY MOUTH THREE TIMES DAILY Not Delegated - Psychiatry: Anxiolytics/Hypnotics Failed - 03/05/2020 11:19 AM Failed - This refill cannot be delegated Passed - Valid encounter within last 6 months Past Office Visits Recent Outpatient Visits 1 month ago Tenosynovitis [facility] Isa Anderson APN, CNP 6 months ago Kidney stone [facility] Isa Anderson APN, SRINIVASAN 1 year ago Upper respiratory tract infection, unspecified type [facility] Sera Francis PAC 1 year ago Acute non-recurrent sinusitis, unspecified location [facility] Lenin Sanchez MD 2 years ago Grief reaction [facility] Lizzette Luz January, PAC Upcoming Appointments Future Appointments In 3 days Isa Anderson APN, SRINIVASAN [facility] venlafaxine (EFFEXOR-XR) 75 MG CAPSULE SR 24 HR [Pharmacy Med Name: Venlafaxine HCl ER 75 MG Oral Capsule Extended Release 24 Hour] 90 Cap 3 Sig: Take 1 capsule by mouth once daily Not Delegated - Psychiatry: Antidepressants: Other Failed - 03/05/2020 11:19 AM Failed - This refill cannot be delegated Passed - Valid encounter within last 12 months Past Office Visits Recent Outpatient Visits 1 month ago Tenosynovitis [facility] Isa Anderson APN, CNP 6 months ago Kidney stone [facility] Isa Anderson APN, CNP 1 year ago Upper respiratory tract infection, unspecified type [facility] Sera Francis, [facility] 1 year ago Acute non-recurrent sinusitis, unspecified location [facility] Lenin Sanchez MD 2 years ago Grief reaction [facility] Lizzette Luz January, PAC Upcoming Appointments Future Appointments In 3 days Isa Anderson APN, SRINIVASAN [facility] Passed - Last BP in normal range BP Readings from Last 1 Encounters: 01/25/20 116/72 documented in this encounter Plan of Treatment Not on file documented as of this encounter Visit Diagnoses Diagnosis Chronic tension-type headache, not intractable Chronic tension type headache Anxiety and depression Dysthymic disorder Grief reaction Adjustment disorder with depressed mood documented in this encounter Additional Health Concerns Infection Onset Date Last Indicated Resolved Time COVID - 19 12/11/2021 12/11/2021 12/31/2021 12:1 6 AM CDT COVID - 19 08/05/2022 08/05/2022 08/15/2022 12:1 6 AM RENT AND MISCELLANEOUS REMITTANCE CLERK Assessment Noted Time PHQ-9 Depression Total Score: 0 01/25/20 8:00 AM CDT documented as of this encounter Care Teams Sand Mixer Relationship Specialty Start Date End Date Rich Villatoro MD #[address] [address] PCP - General Family Medicine 07/30/15 documented as of this encounter
--- OUTSIDE RECORDS SUMMARY | 2024-10-14 15:26 | XMS_ITS | Encounter Summary ---
Author Organization [facility] Address [address] [place] [address] Phone Care Team Providers Care Agricultural Equipment Mechanic Name Role Phone Rich Villatoro MD Primary Care Provider [phone] Reason for Visit * Reason Comments Medication Refill Encounter Details Date Type Department Care Team (Late st Contact Info) Description 06/12/2021 Refill [facility] #2 [place] [id number] Rich Villatoro MD #[address] [address] Medication Refill Social History Tobacco Use Types [...] Telephone Encounter - Cass Andrade RMA - 06/12/2021 3:27 PM CDT Pt scheduled * Telephone Encounter - Karli Cedillo RN - 06/12/2021 1:59 PM CDT Patient needs an appointment with PCP * Telephone Encounter - Karli Cedillo RN - 06/12/2021 1:47 PM CDT Medication failed the protocol, provider to review and approve the medication order if appropriate. Requested Prescriptions Pending Prescriptions Disp Refills busPIRone (BUSPAR) 15 MG Tablet [Pharmacy Med Name: busPIRone HCl 15 MG Oral Tablet] 90 Tablet 0 Sig: TAKE 1 TABLET BY MOUTH THREE TIMES DAILY Buspirone (6 Month Refill Only) Protocol Failed - 06/12/2021 1:47 PM Failed - Visit with relevant provider in [...] with Buspirone for at least 6 months documented in this encounter Plan of Treatment Not on file documented as of this encounter Visit Diagnoses Diagnosis Anxiety and depression Dysthymic disorder documented in this encounter Additional Health Concerns Infection Onset Date Last Indicated Resolved Time COVID - 19 12/11/2021 12/11/2021 12/31/2021 12:1 6 AM CDT COVID - 19 08/05/2022 08/05/2022 08/15/2022 12:1 6 AM NATIONAL VAN TRUCK DRIVER Assessment Noted Time PHQ-9 Depression Total Score: 0 01/25/20 20 8:00 AM CDT documented as of this encounter Care Teams Agricultural Equipment Mechanic Relationship Specialty Start Date End Date Rich Villatoro MD [address] [address] PCP - General Family Medicine 07/30/15 documented as of this encounter
--- OUTSIDE RECORDS SUMMARY | 2024-10-14 15:26 | XMS_ITS | Encounter Summary ---
Author Organization [facility] Address [address] [place] [address] Phone Care Team Providers Care Data Center Consultant Name Role Phone Rich Villatoro MD Primary Care Provider [phone] Reason for Visit * Reason Onset Date Comments Medication Refill 06/04/2020 fioricet Encounter Details Date Type Department Care Team (Late st Contact Info) Description 06/02/2020 Refill [facility] #2 [place] [phone] Rich Villatoro MD #[address] [address] Medication Refill (fioricet) Social History Tobacco Use Types Packs/Day Years [...] Telephone Encounter - Rich Villatoro MD - 06/04/2020 11:09 AM CDT Prescription pending signature * Telephone Encounter - Kimi Dickinson RN - 06/04/2020 10:36 AM CDT Last filled 03/05/20 for #30 with 0 refills. Last OVt: 01/25/20 Labs/testing: Lab Results Component Value Date SODIUM 141 09/04/2019 POTASSIUM 4.2 09/04/2019 CHLORIDE 102 09/04/2019 CO2VEN 27 09/04/2019 ANIONGAP 16.2 09/04/2019 GLUCOSE 79 09/04/2019 BUN 15 09/04/2019 CREATININE 1.11 09/04/2019 BCRATIO8 14 09/04/2019 TOTALPROTEIN 6.2 08/27/2019 ALBUMIN 3.4 (L) 08/27/2019 CALCIUM 9.5 09/04/2019 TBIL <=0.2 08/27/2019 SGOTAST 38 08/27/2019 SGPTALT 62 (H) 08/27/2019 ALKALINEPHO 69 08/27/2019 GFRNA >60 09/04/2019 GFRA >60 09/04/2019 BP Readings from Last 3 Encounters: 01/25/20 116/72 09/04/19 100/76 08/27/19 116/81 Upcoming visits: none Refill pending for your review and approval. documented in this encounter Plan of Treatment Not on file documented as of this encounter Visit Diagnoses Diagnosis Chronic tension-type headache, not intractable Chronic tension type headache documented in this encounter Additional Health Concerns Infection Onset Date Last Indicated Resolved Time COVID - 19 12/11/2021 12/11/2021 12/31/2021 12:1 6 AM CDT COVID - 19 08/05/2022 08/05/2022 08/15/2022 12:1 6 AM ASSAYER Assessment Noted Time PHQ-9 Depression Total Score: 0 01/25/20 20 8:00 AM CDT documented as of this encounter Care Teams Data Center Consultant Relationship Specialty Start Date End Date Rich Villatoro MD #2 [place] [address] PCP - General Family Medicine 07/30/15 documented as of this encounter
[2024-10-14 15:38] VITALS: BP 124/80; PULSE 98; RESP 20; TEMP 37; O2SAT 100
--- NOTE | 2024-10-14 16:43 | ED.EXTPRO ---
HPI - Extremity Problem General Chief complaint: Extremity Problem,Nontraumatic Stated complaint: Infected Thumb Source: patient Mode of arrival: ambulatory Limitations: no limitations History of Present Illness HPI Narrative: Patient presents for evaluation of redness, swelling and pain to the skin surrounding the nail plate of the left thumb. Symptom onset two days ago. He has a history of paronychias. He states that he bites his fingernails frequently. He is not diabetic. He attempted to drain fluid from the area by placing a needle on the area. However it sounds like he did not puncture the skin due to hesitancy related to pain. He has not had any fever, chills, nausea, vomiting or drainage from the area. Related Data Allergies Allergy/AdvReac Type Severity Reaction Status Date / Time No Known Allergies Allergy Verified 10/14/24 15:44 Review of Systems Review of Systems: CONSTITUTIONAL: Denies fever, chills, or sweats. EYES: Denies visual changes, redness, or discharge. ENT: Denies rhinorrhea, congestion, sore throat, or otalgia. CARDIOVASCULAR: Denies chest pain, palpitations, or edema. RESPIRATORY: Denies cough or dyspnea. GASTROINTESTINAL: Denies abdominal pain, nausea, vomiting, or diarrhea. GENITOURINARY: Denies dysuria or hematuria. SKIN: Reports redness to the skin surrounding the nail plate of the left MUSCULOSKELETAL: Reports pain and swelling in the skin surrounding nail plate of the thumb. Denies back pain NEUROLOGIC: Denies headache, numbness, dizziness, or weakness. PSYCHIATRIC: Denies anxiety or depression. [facility] Past Medical History Medical History Patient denies medical problems Surgical History Surgical History No pertinent past surgical history Family History Family History Mother Family history non-contributory Social History Social History Smoking status: Never smoker Substance use: never Gender identity (if verbalized by the patient): Male Sexual Orientation (if Verbalized by the Patient): Straight or Heterosexual Spiritual care concerns: No Exam Narrative: GENERAL: Well-appearing, well-nourished, and in no acute distress. HEAD: Normocephalic, atraumatic. EYES: PERRLA and EOMI. ENT: Nares clear, no rhinorrhea or epistaxis. Mucous membranes moist. Oropharynx without tonsillar hypertrophy exudate or other lesions. Bilateral TMs pearly avitia nonbulging NECK: Supple. No adenopathy or masses. No carotid bruits or JVD CHEST: Clear to auscultation. No respiratory distress. No wheezes rales or rhonchi HEART: Regular rate and rhythm. No murmur heard. Normal peripheral pulses. ABDOMEN: Soft, nontender, nondistended, normal active bowel sounds. EXTREMITIES:There is trace swelling in the skin surrounding the nailplate of the left thumb SKIN: There is erythema to the skin surrounding the nail plate of the left thumb.. NEURO: No focal deficits. Alert and oriented x3. PSYCH: Normal mood and affect. Course Course Emergency Course: This is a 49-year-old male who presented for evaluation of a paronychia. There does not appear to be a drainable fluid collection. Will discharge with Bactrim and Keflex. He was given a tetanus shot prior to time of discharge. He is aware of risk biting nails would place on recurrence of his symptoms. Increase hydration. Hrcu-zbd-obhcljt agents for symptom management. Follow up with primary provider. Go to the ER for worsening symptoms. Also advised on warm soaks. Patient in agreement with plan of care Level of Care: Express Care Visit Vital Signs Vital signs: Vital Signs Temperature 37.0 C 10/14/24 15:38 Pulse Rate 98 10/14/24 15:38 Respiratory Rate 20 10/14/24 15:38 Blood Pressure 124/80 10/14/24 15:38 Pulse Oximetry 100 10/14/24 15:38 Oxygen Delivery Room Air 10/14/24 15:38 Temperature 37.0 C 10/14/24 15:38 Pulse Rate 98 10/14/24 15:38 Respiratory Rate 20 10/14/24 15:38 Blood Pressure 124/80 10/14/24 15:38 Pulse Oximetry 100 10/14/24 15:38 Oxygen Delivery Room Air 10/14/24 15:38 Discharge Plan Discharge Clinical Impression: Acute paronychia of left thumb Patient Disposition: Home, Self-Care Condition: Stable Instructions: Antibiotic Form, Paronychia (ED) Patient Language: Slovak Prescriptions: New sulfamethoxazole-trimethoprim [Bactrim DS] 800-160 mg tablet 1 tablet PO Q12H Qty: 20 0RF cephalexin 500 mg capsule 500 mg PO Q6H 10 Days Qty: 40 0RF Follow-up/Referrals: Sanket Benz MD [Physician] - Time of Disposition: 16:43
[2024-10-14] MEDS: TETANUS,DIPHTHERIA,AC PERTUSSIS ADULT (0.5 ML) BOOSTRIX IM (16:44)
== END 2024-10-14 16:59 | disposition home or self-care (01) ==
PROVIDERS: Emergency Provider Nurse Practitioner
DX: L03.012 Cellulitis of left finger (principal); Z23 Encounter for immunization
CPT/HCPCS: 90471; 90715; 99212; G0463

== ENCOUNTER 2025-04-22 16:50 | Emergency (ER) | payer BC, SELFPAY ==
--- OUTSIDE RECORDS SUMMARY | 2025-04-22 16:52 | XMS_ITS | Encounter Summary ---
Author Organization [facility] Address [address] [place] [address] Phone Care Team Providers Care Top Cleaner Name Role Phone Rich Villatoro MD Primary Care Provider [phone] Reason for Visit * Reason Comments Medication Refill Encounter Details Date Type Department Care Team (Late st Contact Info) Description 12/06/2020 Refill [facility] [place] #2 [place] [phone] Rich Villatoro MD #[address] [address] Medication Refill Social History Tobacco Use Types [...] Visits 2 months ago Anxiety and [facility] Ro MD 10 months ago [facility] [place] APN, BED MACHINE OPERATOR 1 year ago [facility]ney [facility] [place] AP[place], BED MACHINE OPERATOR 2 years ago Upper respiratory tract infection, unspecified type [facility] [place] [place] PAC 2 years ago Acute non-recurrent sinusitis, unspecified location [facility] Lenin Kim MD Upcoming Appointments EMT P - Recent and Past Visits Recent Visits Date Type Provider Dept 09/12/20 Telemedicine Rich Villatoro MD [facility] Jul[facility] 01/25/20 Office Visit Isa Anderson APN, SRINIVASAN [facility] [place] 09/04/19 Office Visit Isa Anderson APN, SRINIVASAN [facility] Showing recent visits within past 460 [...] 19 08/05/2022 08/05/2022 08/15/2022 12:1 6 AM PRICE CHANGER Assessment Noted Time PHQ-9 Depression Total Score: 0 01/25/20 20 8:00 AM CDT documented as of this encounter Care Teams Top Cleaner Relationship Specialty Start Date End Date Rich Villatoro MD #[address] [place] [id number] PCP - General Family Medicine 07/30/15 documented as of this encounter
--- OUTSIDE RECORDS SUMMARY | 2025-04-22 16:52 | XMS_ITS | Encounter Summary ---
Author Organization [facility] Address [address] [place] [address] Phone Care Team Providers Care Topology Teacher Name Role Phone Rich Villatoro MD Primary Care Provider [phone] Reason for Visit * Reason Comments Medication Refill Encounter Details Date Type Department Care Team (Late st Contact Info) Description 03/29/2023 Refill [facility] #2 [place] [phone] Rich Villatoro MD #[address] [address] Medication Refill Social History Tobacco Use Types [...] Dept 10/08/22 Office Visit Rich Villatoro MD [facility] Showing recent visits within past 182 days [...] documented as of this encounter Care Teams Topology Teacher Relationship Specialty Start Date End Date Rich Villatoro MD #[address] [address] PCP - General Family Medicine 07/30/15 documented as of this encounter
--- OUTSIDE RECORDS SUMMARY | 2025-04-22 16:52 | XMS_ITS | Encounter Summary ---
Author Organization [facility] Address [address] [place] [address] Phone Care Team Providers Care Benefits Counselor Name Role Phone Rich Villatoro MD Primary Care Provider [phone] Reason for Visit * Reason Comments Medication Refill Encounter Details Date Type Department Care Team (Late st Contact Info) Description 01/14/2021 Refill [facility] - [place] #2 [place] [address] Rich Villatoro MD #[address] [address] Medication Refill Social History Tobacco Use Types [...] Visits 4 months ago Anxiety and depression [facility] Rich Reyes MD 11 months ago [facility] [place] SKATE MAKER 1 year ago [facility]ney [facility] [place], SKATE MAKER 2 years ago Upper respiratory tract infection, unspecified type [facility] - JulioSear Clark PAC 2 years ago Acute non-recurrent sinusitis, unspecified location [facility] [place] Upcoming Appointments BEEF BREAKER - Recent and Past Visits Recent Visits Date Type Provider Dept 09/12/20 Telemedicine Rich Villatoro MD [facility] 01/25/20 Office Visit Isa Anderson APN, SKATE MAKER [facility] Show[facility] recent visits within past 460 days [...] Provider Dept 09/12/20 Telemedicine [facility] Show[facility] recent visits within past 182 days and meeting all other requirements Future Appointments No visits were found meeting these conditions. Showing future appointments within next 90 days and meeting all other requirements Passed - Has an encounter in the past 6 months with a depression or anxiety visit diagnosis Passed - Patient has established therapy with Buspirone for at least 6 months psgndjbdar-linfirhuduhye-mpwghcei (FIORICET, ESGIC) 50-325-40 MG Tablet [Pharmacy Med Name: Jfckoutjip-SMNV-Xnoomrwb 50-325-40 MG Oral Tablet] 30 Tablet 0 Sig: TAKE 1 TABLET BY MOUTH EVERY 4 TO 6 HOURS NEEDED FOR HEADACHE [facility] Off-Protocol Failed - 01/14/2021 10:44 AM Failed - Medication not assigned to a protocol, review manually. Passed - Valid encounter within last 12 months Past Office Visits Recent Outpatient Visits 4 months ago Anxiety and depression [facility] Rich Reyes MD 11 months [facility] 2 years ago Upper respiratory tract infection, unspecified type [facility] [place] PAC 2 years ago Acute non-recurrent sinusitis, unspecified [facility] Appointments BEEF BREAKER - Recent and Past Visits Recent Visits Date Type Provider Dept 09/12/20 Telemedicine Rich Villatoro MD [facility] 01/25/20 Office Visit Isa Anderson APN, CNP [facility] Show[facility] recent visits within past 460 days [...] 19 08/05/2022 08/05/2022 08/15/2022 12:1 6 AM COMMERCIAL RELIEF DRIVER Assessment Noted Time PHQ-9 Depression Total Score: 0 01/25/20 8:00 AM CDT documented as of this encounter Care Teams Benefits Counselor Relationship Specialty Start Date End Date Rich Villatoro MD #[address] [address] PCP - General Family Medicine 07/30/15 documented as of this encounter
--- OUTSIDE RECORDS SUMMARY | 2025-04-22 16:52 | XMS_ITS | Encounter Summary ---
Author Organization [facility] Address [address] [place] [address] Phone Care Team Providers Care Immigration Guard Name Role Phone Rich Villatoro MD Primary Care Provider [phone] Reason for Visit * Reason Onset Date Comments Prior Authorization 07/13/2022 URGENT! AUTH DENIED PEER TO PEER NEEDED BY 07/16/22 Encounter Details Date Type Department Care Team (Late st Contact Info) Description 07/13/2022 Telephone [facility] Outpatient [address] [place] [phone] Remi Kc, TEST SPECIALIST, BACK JOINER #[address] [address] Prior Authorization (URGENT! AUTH DENIED PEER TO [...] Coronavirus/COVID-19? No / Unsure 07/09/2022 9:50 AM GRADES 9 THROUGH 12 TEACHER documented as of this encounter Miscellaneous Notes * Telephone Encounter - Remi Kc APRN, CNP - 07/15/2022 12:40 PM CST Authorized, [id number] is the authorization number ES 9 THROUGH 12 TEACHER * Telephone Encounter - Kelsey CordobaLukas - 07/13/2022 12:49 PM CST Images from the original note were not included. Auth Denied-P2P offered Ordering Provider: Internal Appointment Info: Clinic: [facility] Provider: SAHXIOMARA Appt Date/Time: Wednesday 10:30 AM Payor + Plan: [facility] CPT/Test: 05555 Authorization denied through: [employer] Phone number called: [phone] Reference number / pharmaceutical representative's name and time of call: [id number] Estimated Amount [Full Charges]: 3,337.00 Reason for denial: A Dbfbsormc-qe-Dyfhjpncv discussion is required to complete the Notification Process. The ordering physician must call and select option #3 to engage in a Edkzurtmx-yh-Pohjvscpv discussion. Please ensure the physician has the case number provided above available when making this call. If a Xidabpovn-zo-Fsnpcmvpt discussion is not conducted within 3 business days,this notification number request will be deemed and you must reinitiate the Notification Process. Add'l Steps Taken (Pt Notified, Reached out to Provider, etc.): Peer to Peer review offered by Payer: Yes Peer to Peer review expires: 07/16/22 Case #: [id number] Phone #: [phone] OPTION 3 Physician: Remi Kc APRN, CNP Phys. Notified? Yes Notification Made to Patient: No If no, provide reason: AWAITING PEER TO PEER TO BE COMPLETE/ ADDRESSED ES 9 THROUGH 12 TEACHER documented in this encounter Plan of Treatment Not on file documented as of this encounter Visit Diagnoses Not on filedocumented in this encounter Additional Health Concerns Infection Onset Date Last Indicated Resolved Time COVID - 19 08/05/2022 08/05/2022 08/15/2022 12:1 6 AM GRADES 9 THROUGH 12 TEACHER Assessment Noted Time PHQ-9 Depression Total Score: 0 01/25/20 20 8:00 AM CDT documented as of this encounter Care Teams Immigration Guard Relationship Specialty Start Date End Date Rich Villatoro MD #2 [place] [id number] PCP - General Family Medicine 07/30/15 documented as of this encounter
--- OUTSIDE RECORDS SUMMARY | 2025-04-22 16:52 | XMS_ITS | Encounter Summary ---
Author Organization [facility] Address [address] [place] [address] Phone Care Team Providers Care Wardrobe Custodian Name Role Phone Rich Villatoro MD Primary Care Provider [phone] Reason for Visit * Reason Comments Medication Refill Encounter Details Date Type Department Care Team (Late st Contact Info) Description 06/12/2021 Refill [facility] - [facility] [address] [place] [id number] Rich Villatoro MD #[address] [address] Medication Refill Social History Tobacco Use Types [...] 19 08/05/2022 08/05/2022 08/15/2022 12:1 6 AM API DEVELOPER Assessment Noted Time PHQ-9 Depression Total Score: 0 01/25/20 20 8:00 AM CDT documented as of this encounter Care Teams Wardrobe Custodian Relationship Specialty Start Date End Date Rich Villatoro MD [address] [address] PCP - General Family Medicine 07/30/15 documented as of this encounter
--- OUTSIDE RECORDS SUMMARY | 2025-04-22 16:52 | XMS_ITS | Clinical Summary ---
Author Organization [facility] Address [address] [place] [address] Phone Care Team Providers Care Measuring Clerk Name Role Phone Rich Villatoro MD Primary Care Provider Allergies No known active allergies Medications methocarbamol [...] drink = 0.6 oz pur e alcohol) [facility] Utilities Answer Date Recorded In the past 12 months has e electric, gas, oil, or water [employer] threatened to shut off services in your home? No 11/17/2023 Social Connection and Isolation Panel Answer Date Recorded In a typical week, how many times do you talk on the phone with family, friends, or neighbors? Once a week 11/17/2023 How often do you get togethe r with friends or relatives? More than three times a week 11/17/2023 How often do you attend chur ch or yarsani services? Patient declined 11/17/2023 Do you belong to any clubs o r organizations such as yarsanism groups, unions, fraternal or athletic groups, or [...] Total Score - Questions 1-9 0 11/29 [facility] [place] of Occupat ional Health - Occupational Stress [...] place to sleep or slept in a fci (including now)? No 11/17/2023 Education Answer Date [...] Comments Blood Pressure 106/76 10/08/2022 10:21 AM CUSTOM SEAMSTRESS Pulse 96 10/08/2022 10:43 AM CUSTOM SEAMSTRESS Temperature 36.6 C (97.9 F) 10/08/2022 10:21 AM CUSTOM SEAMSTRESS Respiratory Rate 16 10/08/2022 10:2 1 AM CUSTOM SEAMSTRESS Oxygen Saturation 100% 10/08/2022 10: 21 AM CUSTOM SEAMSTRESS Inhaled Oxygen Concentration - - Weight 69.8 kg (153 lb 14.4 oz) 023 10:21 AM CUSTOM SEAMSTRESS Height 154.9 cm (5' 1) 10/08/2022 10:2 1 AM CUSTOM SEAMSTRESS Body Mass Index 29.08 10/08/2022 10:21 AM CUSTOM SEAMSTRESS Plan of Treatment Health Maintenance Due Date Last Done Comments Hepatitis C Virus (HCV) Screening 1977 TdaP Immunization 1977 Hepatitis B Immunization (1 of 3 - 19+ 3-dose series) 1996 Cologuard 2022 Colonoscopy 2022 Colorectal Cancer Screening 2022 Immunochemical Fecal Occult Blood 2022 SARS-COV-2 Immunization ( season) 2024 08/13/2021, 06/23/2021, 11/15/2020, Additional history exists Influenza Immunization (#1) 2025 04/30/2012, 0 04/30/2012 Respiratory Syncytial Virus (RSV) Immunization (Adult) (1 - 1-dose 75+ series) 2052 Human Papillomavirus (HPV) Immunization Aged Out No longer eligible based on patient's age to complete this topic Meningococcal Immunization (ACWY) Aged Out No longer eligible based on patient's age to complete this topic Pneumococcal Immunization Combined Aged Out No longer eligible based on patient's age to complete this topic Rotavirus Immunization Aged Out No lo nger eligible based on patient's age to complete this topic Medical Devices Implanted Type Area Behavioral Health Aide Device Identifier Shelf Expiration Date Model / Serial / Lot Stent Ureteral 6fr 2.1fr 26cm 2 Pigtail Curve 2 Durometer Taper Tip Loprfl Graduated Polaris Ultra - [id number] Implanted:Qty : 1 on 08/25/2019 by [facility] IMPLANT Left: Ureter [employer] 06/12/2022 [id number] 0 / [id number] / [id number] Explanted Type Area Behavioral Health Aide Device Identifier Shelf Expiration Date Model / Serial / Lot Stent Ureteral 6fr 2.1fr 26cm 2 Pigtail Curve 2 Durometer Taper Tip Loprfl Graduated Polaris Ultra - [id number] Implanted:Qty : 1 on 08/19/2019 by Connor Giron MD at [facility] Explanted:Qty : 1 on 08/25/2019 by Patience Chaidez MD at [facility] IMPLANT Left: Ureter [employer] 01/28/2022 [id number] 0 / [id number] / [id number] Insurance [facility] [place] [address] Advance Directives * Full Code (Latest Code [...] measures to stabilize the patient. Care Teams Measuring Clerk Relationship Specialty Start Date End Date Rich Villatoro MD #[address] [address] PCP - General Family Medicine 07/30/15
--- OUTSIDE RECORDS SUMMARY | 2025-04-22 16:52 | XMS_ITS | Encounter Summary ---
Author Organization [facility] Address [address] [place] [address] Phone Care Team Providers Care Radio Machinist Name Role Phone Rich Villatoro MD Primary Care Provider [phone] Reason for Visit * Reason Onset Date Comments Medication Refill 06/04/2020 fioricet Encounter Details Date Type Department Care Team (Late st Contact Info) Description 06/02/2020 Refill [facility] - Family Medicine [facility] [address] [place] [id number] Rich Villatoro MD #[address] [address] Medication Refill (fioricet) Social History Tobacco Use [...] 19 08/05/2022 08/05/2022 08/15/2022 12:1 6 AM HELP DESK AGENT Assessment Noted Time PHQ-9 Depression Total Score: 0 01/25/20 20 8:00 AM CDT documented as of this encounter Care Teams Radio Machinist Relationship Specialty Start Date End Date Rich Villatoro MD [address] [place] [address] PCP - General Family Medicine 07/30/15 documented as of this encounter
[2025-04-22 16:56] VITALS: BP 114/89; PULSE 124; RESP 20; TEMP 36.1; O2SAT 100
--- OUTSIDE RECORDS SUMMARY | 2025-04-22 16:56 | XMS_ITS | Encounter Summary ---
Author Organization [facility] Address [address] [place] [address] Phone Care Team Providers Care Tube Wrapper Name Role Phone Rich Villatoro MD Primary Care Provider [phone] Reason for Visit * Reason Comments Medication Refill Encounter Details Date Type Department Care Team (Late st Contact Info) Description 09/17/2021 Refill [facility] - Family Medicine [facility] [address] [place] [id number] Rich Villatoro MD #[address] [address] Medication Refill Social History Tobacco Use Types [...] Cass Andrade RMA - 09/18/2021 9:58 AM WASHING MACHINE LOADER AND PULLER Left voicemail ING MACHINE LOADER AND PULLER * Telephone Encounter - Karli Cedillo RN - 09/17/2021 1:50 PM CST Patient needs an appointment with PCP ING MACHINE LOADER AND PULLER * Telephone Encounter - Karli Cedillo RN [...] Reuptake Inhibitors for at least 6 months ING MACHINE LOADER AND PULLER documented in this encounter Plan of Treatment Not on file documented as of this encounter Visit Diagnoses Diagnosis Grief reaction Adjustment disorder with depressed mood documented in this encounter Additional Health Concerns Infection Onset Date Last Indicated Resolved Time COVID - 19 12/11/2021 12/11/2021 12/31/2021 12:1 6 AM CDT COVID - 08/05/2022 08/05/2022 08/15/2022 12:1 6 AM WASHING MACHINE LOADER AND PULLER Assessment Noted Time PHQ-9 Depression Total Score: 0 01/25/20 8:00 AM CDT documented as of this encounter Care Teams Tube Wrapper Relationship Specialty Start Date End Date Rich Villatoro MD [id number] [address] PCP - General Family Medicine 07/30/15 documented as of this encounter
--- NOTE | 2025-04-22 17:00 | ED_ITS ---
HPI - Back Pain/Injury General Chief Complaint: Back Pain/Injury Stated Complaint: Back Injury Time Seen by Provider: 04/22/25 17:01 Source: patient and RN notes reviewed Mode of arrival: ambulatory Limitations: no limitations History of Present Illness HPI Narrative: 49-year-old male presents with concern for acute back pain. Patient reports he was doing heavy lifting a few days ago and had back pain that he was managing with ibuprofen and heating pads. Reports today just prior to arrival he was lifting a fish tank into his truck when he had sudden acute back pain. He reports that is in midline and there are no relieving factors. He reports pain with standing, pain with sitting. He has not taken any medications since this is new onset of pain. He denies any numbness in any extremity, perianal anest hesia, loss of bowel or bladder function, abdominal pain. MD elicited complaint: back pain Related Data Home Medications ?Medication ?Instructions ?Recorded ?Confirmed ?Last Taken ?Type No Home Medications 04/22/25 Unknown H istory Allergies Allergy/AdvReac Type Severity Reaction Status Date / Time No Known Allergies Allergy Verified 04/22/25 17:00 Review of Systems Review of Systems: CONSTITUTIONAL: Denies malaise, chills, sweats, or fever. CARDIOVASCULAR: Denies chest pain, palpitations, or edema. RESPIRATORY: Denies cough or dyspnea. GASTROINTESTINAL: Denies abdominal pain GENITOURINARY: Denies dysuria, hematuria, frequency, loss of bladder function. SKIN: Denies rash or itching. MUSCULOSKELETAL: Reports low back pain NEUROLOGIC: Denies numbness, weakness, or headache. All systems reviewed & are unremarkable except as noted in HPI and below PMFSH Past Medical History Medical History Patient denies medical problems Surgical History Surgical History No pertinent past surgical history Family History Family History Mother Family history non-contributory Social History Social History Smoking status: Never smoker Substance use: never Gender identity (if verbalized by the patient): Male Sexual Orientation (if Verbalized by the Patient): Straight or Heterosexual Spiritual care concerns: No Comments At time of signature, agree with nursing past medical, surgical, social and family history. There is no relevant family history pertinent to the presenting complaint Exam Narrative: GENERAL: Well-appearing, well-nourished, and in no acute distress. Patient appears uncomfortable HEAD: Normocephalic, atraumatic. EYES: PERRLA and EOMI. NECK: Supple. No lymphadenopathy. CHEST: Clear to auscultation. No respiratory distress. HEART: Regular rate and rhythm. Distal pulses palpable and equal, cap refill <3 seconds MUSCULOSKELETAL: Grossly Normal range of motion and strength in all extremities; 5/5 strength with hip flexion and extension, dorsiflexion and extension, knee flexion and extension, plantar flexion and extension.Transfers from sitting to standing. SKIN: Warm, dry, no rash. NEURO: No focal deficits. Alert and oriented x3. Normal gait. PSYCH: Normal mood and affect Course Course Emergency Course: Discussed care options with patient, patient is in acute pain and we do not have the ability for acute pain management, patient would like transfer to emergency room for further evaluation and pain management. Patient is aware of, understands and agrees to transfer to emergency room. Patient agrees to proceed directly to the emergency department. Portions of this record may have been created with voice recognition software Level of Care: [facility] Visit Vital Signs Vital signs: Reviewed. Transfer Transfered to: [facility] Transportation: Other (Private vehicle) Transfer rationale: Back pain Accepting physician: Jos MDM - Back Pain/Injury [facility] Narrative Medical decision making narrative: I evaluated this in the express care. History is obtained from patient who is an independent historian and physical exam was performed.? Available medical records were reviewed. ? Patient is non-toxic appearing and is in no distress. Critical Care Time Critical Care Time Critical Care Time: No Discharge Plan Discharge Clinical Impression: Back pain Patient Disposition: Acute Care Hospital Condition: Stable Patient Language: Wallisian Follow-up/Referrals: UNKNOWN,DOCTOR [Primary Care Provider] Time of Disposition: 17:15
== END 2025-04-22 17:17 | disposition short-term general hospital (02) ==
PROVIDERS: Emergency Provider Nurse Practitioner
DX: M54.9 Dorsalgia, unspecified (principal); X50.0XXA Overexertion from strenuous movement or load, initial encounter
CPT/HCPCS: 99212; G0463